=== PATIENT | female | born 1980 | race Caucasian/White ===

== ENCOUNTER 2016-10-12 09:51 | Inpatient (IN) | payer OTHER ==
[~2016-10-12] VITALS: Ht 162.6 cm; Wt 81.2 kg
[2016-10-12] MEDS ORDERED: Lactated Ringer's 1,000 ML IV PRN (10:26)
[2016-10-12] MEDS ORDERED: Oxytocin 30 Units/500 mL LR 30 UNITS in IV Premix 1 EACH IV PRN ×2 (10:30→13:55)
[2016-10-12] MEDS ORDERED: Penicillin G K Inj 5,000,000 UNITS in Dextrose 5% Minibag Plus 100 ML IV ONE (10:30)
[2016-10-12] MEDS ORDERED: Hemorrhage Kit, Post Partum XX ONE (10:30)
[2016-10-12] MEDS ORDERED: Oxytocin 10 Unit/mL Inj IM PRN (10:30)
[2016-10-12] MEDS ORDERED: Carboprost 250 mCg/mL Inj IM PRN (10:30)
[2016-10-12] MEDS ORDERED: fentaNYL-PF 50 mCg/mL 2 mL Inj IVPUSH PRN (10:30)
[2016-10-12] MEDS ORDERED: Methylergonovine 0.2 mg/mL Inj IM PRN (10:30)
[2016-10-12] MEDS ORDERED: Sodium Chloride LOK Flush 10 mL Syringe IVFLUSH PRN (10:30)
[2016-10-12 11:14] LABS: Mean Corpuscular Hemoglobin 29.7 pg (27.0-35.0); Mean Corpuscular Volume 87.2 fL (81-100)
[2016-10-12] MEDS ORDERED: LEVO50TA6 PO (11:21)
[2016-10-12] MEDS ORDERED: PNV1TABL81 PO (11:21)
--- NOTE | 2016-10-12 13:21 | HP ---
[address] [address] HISTORY AND PHYSICAL PATIENT: IBETH JOSEPH : 1980 MR#: [id number] ADMIT: 10/12/2016 JOB ID: [id number] ADMISSION DIAGNOSIS: Premature rupture of membranes at term. HISTORY OF PRESENT ILLNESS: The patient is a 36-year-old 1, para 0, at 39 weeks and 5 days gestational age by 12 week ultrasound, who presented with leakage of fluid that started at 3 a.m. this morning, confirmed rupture of membranes at triage. Denied any vaginal bleeding. Reports infrequent contractions. Reports movements. Patient complicated with the followin. IVF . 2. AMA. 3. Hypothyroid disease on 15 mcg of levothyroxine daily. 4. History of Chlamydia. GC and Chlamydia cultures were negative during this . 5. GBS cultures positive. Antibiotic prophylaxis started. 6. Rubella nonimmune. Plan is for MMR . PAST OBSTETRICAL HISTORY: Primigravida. PAST GYNECOLOGIC HISTORY: Denied any history of abnormal Pap smears. Positive history of Chlamydia. PAST MEDICAL HISTORY: Hypothyroidism. PAST SURGICAL HISTORY: IVF procedure. ALLERGIES: No known drug allergies. MEDICATIONS: 1. Levothyroxine 50 mcg daily. 2. vitamins. SOCIAL HISTORY: Denied any alcohol consumption. Denied any drugs of abuse. Denied any cigarette smoking. LABORATORIES: A-positive antibody negative, rubella non immune, varicella immune. Pap smear negative. RPR nonreactive. Hepatitis B surface antigen negative. HIV nonreactive. GC, Chlamydia cultures negative. GBS cultures positive. H and H is 13.2 and 38.8. Platelets are 269. White blood count 12.3. PHYSICAL EXAMINATION: The patient is alert, oriented x3. Vital signs are 121/82 for blood pressure. Respirations are 18, and pulse is 96 manually by myself. Temperature 37.4 degrees centigrade. Heart is regular rate and rhythm. Positive S1, S2. Lungs clear to auscultation bilaterally. Abdomen: Gravid uterus, nontender, positive bowel sounds. Lower extremities: No calf tenderness appreciated bilaterally. 2+ pitting edema up to knees bilaterally. Cervical examination by admitting triage nurse, 2 cm dilated cervix, 90% effaced, 0 station. Soft cervix, posterior position. Preciado score of 8. The patient declined my examination. heart tracing is showing a baseline of 140 beats per minute, positive accelerations, no decelerations, moderate variability, reactive tracing. ASSESSMENT AND PLAN: The patient is a 36-year-old 1, para 0, at 39 weeks and 5 days gestational age by 12 weeks ultrasound. At [facility] admitted with premature rupture of membranes. 1. Induction of labor will start with Pitocin considering patient score of 8. 2. GBS cultures positive. Penicillin prophylaxis started. 3. Category 1 heart tracing. Will continue the external monitoring. 4. Discussed intrapartum analgesia options with the patient. She opted for epidural. Anesthesia notified. All the above discussed with the patient who agreed with the plan. SY
[2016-10-12] MEDS ORDERED: Lactated Ringer's 500 ML IV ONE (13:41)
--- NOTE | 2016-10-12 13:41 | PCM.HPANE ---
Patient Data Surgeon Admitting Provider:Kevin Montana MD Attending Provider:Kevin Montana MD Primary Care Physician:Nopwilma Other Provider:Elgin Moon Anesthesia Reason for Visit Term Labor TERM LABOR Ht/WT & BMI Body Mass Index Allergies Coded Allergies: No Known Allergies (Unverified , 10/12/16) Medications Reported Medications Pnv No.122/Iron/Folic Acid ( Multi Tablet)27 Mg Iron-800 Mcg Tablet1 Each PO 10/12/16 Levothyroxine 50 Mcg Yeoxzs51 Mcg PO DAILY Ref 0 10/12/16 History Smoking Status: Former Smoker Stop/Bang Risk Assessment Category Category 1A: Patient has history of documented sleep apnea, and HAS NOT received any narcotic, sedative or anesthesia administration during this stay. Category 1B: Patient has history of documented sleep apnea, and HAS received any narcotic , sedative or anesthesia administration during this stay Category 2: Patient has SUSPECTED Obstructive Sleep Apnea, and HAS received any narcotic , sedative or anesthesia administration during this stay. Category 3: Patient has SUSPECTED Obstructive Sleep Apnea and HAS NOT received narcotic, sedative or anesthesia administration during this stay. Category 4: Outpatient in Procedural Areas with known sleep apnea or who screen positive for High Risk via the STOP/BANG questionnaire. Exam Exam General Appearance: Alert, Oriented X3, Cooperative HEENT/AIRWAY: MP 2, Neck Movement (from), Mouth Opening (wnl) Lungs: Clear to Auscultation Heart: Exam Unremarkable Meds/Labs/Diagnostics Admission Meds Current Medications Penicillin G Potassium/ Dextrose/Water (Pfizerpen Inj/ D5W Minibag Plus) 100 ml @ 240 mls/hr ONCE ONCE IV Last administered on 10/12/16t 11:14; Start at 10:30; Stop 10/12/16 at 10:54; Status DC Labs Test 10/12/16 11:09 White Blood Count 12.3th/mm3 (3.8-10.1) Red Blood Count 4.45mil/mm3 (3.90-5.20) Hemoglobin 13.2g/dL (12.0-15.6) Hematocrit 38.8% (35.0-46.0) Mean Corpuscular Volume 87.2fL (81-100) Mean Corpuscular Hemoglobin 29.7pg (27.0-35.0) Mean Corpuscular Hemoglobin Concent 34.0% (32.0-37.0) Red Cell Distribution Width 14.2% (12.3-15.4) Platelet Count 269bil/L (150-400) Plan Impression Patient chart reviewed, patient interviewed and anesthestic plan with risks, benefits, and alternatives discussed, and informed consent obtained. ASA Physical Status: ASA2 Mod Systemic Disease Anesthetic Plan: Epidural Bene/Risks/Altern/Consents: Yes HP Complete Prior to Induction: Yes David Tanner MD Oct 12, 2016 13:41
[2016-10-12] MEDS ORDERED: Ondansetron 2 mg/mL 2 mL Inj IVPUSH PRN (13:45)
[2016-10-12] MEDS ORDERED: fentaNYL 2 mCg/mL-Bupiv 0.125% 100 ML EPIDURAL SCH (13:45)
[2016-10-12] MEDS ORDERED: Atropine 1 mg/10 mL (Code) Syringe IVPUSH PRN (13:45)
[2016-10-12] MEDS ORDERED: Penicillin G K 3,000,000 Units/50 mL D5W Premix IV ONE (15:05)
[2016-10-12] MEDS: Penicillin G K Inj 3,000,000 UNITS in IV Premix 1 EACH IV SCH ×3 (15:31→23:38)
[2016-10-12] MEDS: Lactated Ringer's 1,000 ML IV SCH ×2 (15:32→23:37)
--- NOTE | 2016-10-12 18:29 | PCM.ANEP1 ---
Post Anesthesia Phase 1 PACU Phase 1 Assessment Anesthetic Administered: Epidural Level of Alertness: Awake, talking SOSA's with Equal Strength: Yes Pain: Yes Nausea or Vomiting: No Oxygen Delivery: Room Air Lungs: Normal Air Movement David Tanner MD Oct 12, 2016 18:29
[2016-10-12] MEDS: EPHEDrine Sulfate 50 mg/mL Inj IVPUSH PRN ×2 (19:38→19:47)
[2016-10-13] MEDS: Penicillin G K Inj 3,000,000 UNITS in IV Premix 1 EACH IV SCH ×4 (03:38→16:30)
[2016-10-13] MEDS: Lactated Ringer's 1,000 ML IV SCH ×8 (03:39→17:00)
[2016-10-13] MEDS ORDERED: Sodium Citrate-Citric Acid 15 mL Solution ONE (06:32)
[2016-10-13] MEDS ORDERED: Ketamine 10 mg/mL 20 mL Inj ONE (06:41)
[2016-10-13] MEDS ORDERED: Propofol 10,000 mCg/mL 20 mL Inj ONE (06:41)
[2016-10-13] MEDS ORDERED: fentaNYL-PF 50 mCg/mL 2 mL Inj ONE (06:41)
[2016-10-13] MEDS ORDERED: Oxytocin 10 Unit/mL Inj ONE (06:41)
[2016-10-13] MEDS ORDERED: Morphine PF 1 mg/mL 10 mL Inj ONE (06:41)
[2016-10-13] MEDS ORDERED: Lactated Ringer's 1,000 ML IV PRN (07:42)
[2016-10-13] MEDS ORDERED: EPHEDrine Sulfate 50 mg/mL Inj IVPUSH PRN (07:45)
[2016-10-13] MEDS ORDERED: Dexamethasone 4 mg/mL Inj IVPUSH PRN (07:45)
[2016-10-13] MEDS ORDERED: HYDROmorphone 1 mg/mL Inj IVPUSH PRN (07:45)
[2016-10-13] MEDS ORDERED: Ondansetron 2 mg/mL 2 mL Inj IVPUSH PRN (07:45)
[2016-10-13] MEDS ORDERED: fentaNYL-PF 50 mCg/mL 2 mL Inj IVPUSH PRN (07:45)
[2016-10-13] MEDS ORDERED: Morphine PF 1 mg/mL 10 mL Inj EPIDURAL ONE (07:45)
[2016-10-13] MEDS ORDERED: MetoCLOpramide 5 mg/mL 2 mL Inj IVPUSH PRN (07:45)
[2016-10-13] MEDS ORDERED: Atropine 0.4 mg/mL Inj IV PRN (07:45)
--- NOTE | 2016-10-13 08:03 | ABG ---
DateTimeAnalyzed 07:53:00 -_ pH ____7.194 - 7.201 7.300 pCO2 ___56.8__ -mmHg 40.0 50.9 pO2 ___15.6__ -mmHg 45.0 70.0 HCO3- ___21.0__ -mmol/L 20.0 24.0 ABE ___-8.0__ -mmol/L tHb ___16.8__ -g/dL O2Hb ___19.2__ -% COHb ___-0.4__ -% MetHb ____1.3__ -% sO2 ___19.4__ -% FIO2 ___21.0__ -% Drawn By [facility] - Date/Time Notified____ 08:02:00 -_ Notified By [facility] - Notified Whom ___Dr. Preciado - B 750 -mmHg tO2 ____4.5__ -Vol% Roney test N/A -
--- NOTE | 2016-10-13 08:04 | ABG ---
DateTimeAnalyzed 07:58:00 -_ pH ____7.243 - 7.201 7.300 pCO2 ___52.1__ -mmHg 40.0 50.9 pO2 ___17.6__ -mmHg 45.0 70.0 HCO3- ___21.7__ -mmol/L 20.0 24.0 ABE ___-5.9__ -mmol/L tHb ___15.8__ -g/dL O2Hb ___27.6__ -% COHb ___-0.2__ -% MetHb ____1.2__ -% sO2 ___27.9__ -% FIO2 ___21.0__ -% Drawn By [facility] - Date/Time Notified____ 08:04:00 -_ Notified By [facility] - Notified Whom ___Dr. Preciado - B 750 -mmHg tO2 ____6.1__ -Vol% Roney test N/A -
[2016-10-13] MEDS ORDERED: LANOlin HPA 7 Gm Ointment TOPICAL PRN (09:00)
[2016-10-13] MEDS ORDERED: Oxytocin 30 Units/500 mL LR 30 UNITS in IV Premix 1 EACH IV PRN (09:00)
[2016-10-13] MEDS ORDERED: Measles-Mumps-Rubella Vaccine 0.5 mL Inj SUBQ ONE (09:00)
[2016-10-13] MEDS ORDERED: Acetaminophen IV 1,000 MG in IV Premix 1 EACH IV PRN (09:00)
[2016-10-13] MEDS ORDERED: Methylergonovine 0.2 mg/mL Inj IM PRN (09:00)
[2016-10-13] MEDS ORDERED: Hemorrhage Kit, Post Partum XX ONE (09:00)
[2016-10-13] MEDS ORDERED: Sodium Chloride LOK Flush 10 mL Syringe IVFLUSH PRN (09:00)
[2016-10-13] MEDS ORDERED: Oxytocin 10 Unit/mL Inj IM PRN (09:00)
[2016-10-13] MEDS ORDERED: Carboprost 250 mCg/mL Inj IM PRN (09:00)
--- NOTE | 2016-10-13 09:02 | PCM.ANEP1 ---
Post Anesthesia Phase 1 PACU Phase 1 Assessment Anesthetic Administered: Epidural Level of Alertness: Awake, talking SOSA's with Equal Strength: Yes Pain: Yes Nausea or Vomiting: No Oxygen Delivery: Room Air Lungs: Clear to Auscultation Kalia Duong MD Oct 13, 2016 09:02
--- NOTE | 2016-10-13 09:21 | PCM.ANEP2 ---
Post Anesthesia Evaluation ASA/CMS Post Anesthesia VS in Patient's Normal Range?: Yes Resp Stable; Airway Patent?: Yes CV Function & Hydration Stable: Yes Mental Status Recovered?: Yes Pain control Satisfactory?: Yes N/V Control Satisfactory?: Yes Kalia Duong MD Oct 13, 2016 09:21
--- NOTE | 2016-10-13 14:34 | OP ---
[address] [address] OPERATIVE REPORT PATIENT: IBETH JOSEPH : 1980 MR#: [id number] ADMIT: 10/12/2016 JOB ID: [id number] DATE OF SURGERY: 10/13/2016 SURGEON: Sara Pinedo MD. WALLPAPER PRINTER: Dr. Negron. PREOPERATIVE DIAGNOSIS(ES): 1. A 36-year-old, 1, para 0, at 39 weeks and 6 days gestational age by 12-week ultrasound. In vitro fertilization . Presented with premature rupture of membranes. Induction of labor started with low-dose Pitocin that was stopped and patient progressed to fully dilated spontaneously. Patient pushed for 2 hours with arrest of descent at -1 station diagnosed with caput succedaneum formation. 2. Category 2 heart tracing that is unresponsive to intrauterine resuscitation measures. Tachycardia at 170 beats per minute. Started at 5:20 a.m. with early and late decelerations. Positive accelerations, moderate variability. One prolonged deceleration at 6:22 a.m. for 2 minutes, keiko of 90 beats per minute, back to the baseline. Discussed the above with the patient and she opted to proceed with a primary C- section and consent signed. All questions answered. POSTOPERATIVE DIAGNOSIS(ES): 1. A 36-year-old, 1, para 0, at 39 weeks and 6 days gestational age by 12-week ultrasound. In vitro fertilization . Presented with premature rupture of membranes. Induction of labor started with low-dose Pitocin that was stopped and patient progressed to fully dilated spontaneously. Patient pushed for 2 hours with arrest of descent at -1 station diagnosed with caput succedaneum formation. 2. Category 2 heart tracing that is unresponsive to intrauterine resuscitation measures. Tachycardia at 170 beats per minute. Started at 5:20 a.m. with early and late decelerations. Positive accelerations, moderate variability. One prolonged deceleration at 6:22 a.m. for 2 minutes, keiko of 90 beats per minute, back to the baseline. Discussed the above with the patient and she opted to proceed with a primary C- section and consent signed. All questions answered. PROCEDURE: Primary low transverse section. ANESTHESIA: Epidural. ESTIMATED BLOOD LOSS: 600 cc. INTRAVENOUS FLUIDS: 1 L of crystalloid. COMPLICATIONS: None. PACKS: None. DRAINS: None. CATHETERS: Mckinney catheter in place. INTRAOPERATIVE FINDINGS: 1. Normal fallopian tubes and ovaries bilaterally. 2. head in left occiput posterior position with caput succedaneum. 3. Single viable female with Apgars 5/7/9. Weight of 3998 g. 4. Loose intra-abdominal mass that is around 1 x 2 cm in diameter. Could represent some calcified fat tissue. Was sent to Pathology. PROCEDURE: Risks, benefits, alternatives of the procedure discussed with the patient. Informed consent was signed. Patient brought to the OR with IV running. After epidural anesthesia was found to be adequate, Mckinney catheter inserted and the patient was prepped and draped in the normal sterile fashion. Incision made with a scalpel 2 cm above the symphysis pubis and carried down to the underlying rectus fascia with the scalpel. Fascial incision extended bilaterally with the Schwartz scissors. Inferior aspect of fascial incision was grasped with Giuseppe clamps, elevated, tented up, rectus muscle dissected off bluntly. Attention was then turned to the superior aspect of the fascial incision, which in similar fashion was grasped with Giuseppe clamps, elevated, tented up, rectus muscle dissected off bluntly. Rectus muscles were then in the midline. Peritoneum identified, entered bluntly with traction, countertraction. Upon good visualization of the bladder, the peritoneal incision was extended superiorly and inferiorly. Bladder blade inserted and the vesicouterine peritoneum identified, entered sharply with the Metzenbaum scissors. Bladder flap created digitally. Bladder blade reinserted. Uterus incised in midline with scalpel and incision extended bilaterally with bandage scissors. was found to be in left occiput posterior position. brought up to the hysterotomy level, and the infant head delivered, followed by shoulders and the rest of the body without difficulty. Delayed cord clamping allowed for 60 seconds. Cord clamped and cut. Infant handed off to awaiting direct customer service representative. Cord blood collected for blood gases as well. Placenta followed spontaneously. Uterus exteriorized, cleared of all clots and debris. The uterine incision repaired in two layers, first a continuous locked fashion of 0-Vicryl suture, 2nd layer imbrication with 0- Vicryl suture. There was a small extension in the middle of the incision that was repaired with continuous locked fashion of 0-Vicryl suture. Good hemostasis was assured. Suction irrigation confirmed hemostasis. Both tubes and ovaries were inspected and found to have normal anatomy. Uterus returned back to the abdomen. Second suction irrigation confirmed hemostasis. Interceed was inserted over the patient's repaired hysterotomy to prevent future formation of adhesions. All instruments were removed from the patient's abdomen. Muscles approximated in the midline with interrupted sutures of 2-0 chromic. Fascia closed in a continuous fashion of 0- Vicryl suture. Skin closed in a subcuticular fashion with 4-0 Vicryl. Steri-Strips and pressure dressing applied. Patient tolerated the procedure well. Sponge, lap, and instrument counts were correct x2. Mom and baby recovering in a stable condition. Dr. Pinedo was present and scrubbed for the entire procedure. SY
[2016-10-14] MEDS ORDERED: Measles-Mumps-Rubella Vaccine 0.5 mL Inj SUBQ ONE (06:45)
[2016-10-14 07:15] LABS: Mean Corpuscular Hemoglobin 29.6 pg (27.0-35.0); Mean Corpuscular Volume 92.2 fL (81-100)
[2016-10-14] MEDS: Lactated Ringer's 1,000 ML IV SCH ×4 (07:26→17:00)
--- NOTE | 2016-10-14 07:45 | PCM.PNOBPP ---
Subjective Date of Service Oct 14, 2016 Post : Primary Ceserean Delivery Visit History Presented to the [facility] at 39 weeks and 5 days after having spontaneous rupture of membrane on 10/12/2016 a roughly 3 AM. She was progressing through labor normally, when on the morning of she began to have changes in the heart rate tracing, namely tachycardic at 170, prolonged decelerations for 2 minutes at 90 beats per minute, moderate variability. She underwent primary with Dr. Pinedo due to the category 2 tracing and concern for baby. She is GBS positive and prior to delivery received GBS prophylaxis. Additionally during , massive tissue was identified and resected and sent for pathology, the operative note describes this as "calcified tissue." labs showed her to be rubella nonimmune. Subjective This morning the patient claims she is doing well, she is breast-feeding, and states her pain could be better controlled. She states she did not know that she could ask for additional pain medication and have been waiting for the nurses to bring it to her. She was started on levothyroxine 50 g during , such did not take it prior to , and she has not received it since being admitted to the hospital. Lochia: Normal Pain Management: PO pain meds Gastrointestinal: Good Appetite, No N/V, Passing Flatus Group B Strep Results: Positive Rubella: Non-Immune Blood Type: A RH Type: Positive Labs Laboratory Tests 10/14/16 06:41: Exam Vital Signs Vital Signs 103/50 110 18 37.3 97% Vital Signs: VS reviewed, stable Exam Abdomen: Fundus firm, Abdomen soft, Abdomen appropriately tender : UOP has been (good), Mckinney catheter Extremities: No cords, Normal pulses, Edema 2+, SCDs on Lungs: Clear to Auscultation Heart: Regular Rate/Rhythm, Normal S1, Normal S2 General: Alert, Oriented X3, Cooperative, No Acute Distress Surgical Wound : Incision General Appearence: No Erythemia Dressing & Drainage Status: Dry & Intact, No Odor OB Post Assessment/Plan Assessment 36-year-old woman postop day 1 from primary delivery, recovering as anticipated. Problems: (1) Term Status: Acute ICD Code: Z34.80 (2) Spontaneous rupture of membranes Status: Acute ICD Code: [id number] (3) Status post primary low transverse section Status: Acute ICD Code: Z98.89 Pain Management: Oral analgesics. Advised patient to stay on top of pain rather than taking pain medication when pain becomes unbearable. Pain Evaluation: Adequate Pain Control VTE Mechanical Devices: Intermittant Pneumatic CD Post plan: Continue routine post care, Discharge home tomorrow Plan: Continue to encourage breast-feeding Continue to encourage ambulation Routine care. MMR vaccination to be administered. Attending Statement asymptomatic hypothyroidism at early . Started levothyroxin in . I will not start her back to medication and will check her TSH. Will decide whether need to restart. Timothy Jimenez DO Oct 14, 2016 07:45 Tmaika Baumann MD Oct 14, 2016 12:48
[2016-10-14] MEDS: Ascorbic Acid 500 mg Tablet PO SCH (08:24)
[2016-10-14] MEDS: Penicillin G K Inj 3,000,000 UNITS in IV Premix 1 EACH IV SCH ×4 (08:30→20:30)
--- NOTE | 2016-10-15 08:10 | PCM.DIMED ---
Timothy Jimenez DO 10/15/16 0810: Discharge Instructions Date of Service Oct 15, 2016 Dates of Hospitalization Oct 12, 2016 at 9:58 am Discharge Diagnosis Discharge Diagnosis Term Labor SROM Catagory 2 monitor tracing Status post primary delivery. Medication Instructions Percocet 5/325 mg, take 1 tab q4-6h PO PRN for pain, #40 Colace 100 mg BID PO PRN for constipation #100 Ferrous sulfate 325 mg PO daily, #90 Vitamin C 500 mg PO daily, #90. Take with iron Ibuprofen 800mg, take 1 tab q8h PO PRN for pain #60 Diet No restrictions Activity Other (No lifting >15 for 6 wks. Pelvic rest for 6wks. Balance activty and rest as pain allows. ) Patient Instructions Continue your vitamin. Please take the iron and vitamin c together for your anemia. Do not take more pain medication (Percocet) than is necessary -- less is better. Percocet pills have Tylenol (acetaminophen) in them at 325mg per pill. Do not take Tylenol in addition to your pain medication but should take one or the other. Both iron and Percocet can give you constipation so you have also been given a prescription for docusate to keep you regular. Be sure to follow up in 2 weeks and then again in 6 weeks at [facility]. Pelvic rest for 6 weeks (nothing per vagina including intercourse, tampons) If you have a fever greater than 100.4, please call [facility]. There is always someone projection camera operator to talk to. If you have an increase in bleeding, call [facility]. If you have a lot of bleeding suddenly, especially if you have symptoms of dizziness & weakness with it, get emergency help. When you see [facility] in two weeks, you will be informed of the results of all the labs. If you start experiencing extreme depression, especially if you feel that you are a danger to yourself or your family, seek emergency help. You have been through a lot -- BE SURE TO TAKE CARE OF YOURSELF. Follow-up plan Follow up in [facility] in 2 and 6 weeks. Tamika Baumann MD 10/22/16 1436: Discharge Instructions Attending's Statement I saw patient and agree with above plan Timothy Jimenez DO Oct 15, 2016 08:10 Tamika Baumann MD Oct 22, 2016 14:36
[2016-10-15] MEDS ORDERED: Ascorbic Acid PO (08:14)
[2016-10-15] MEDS ORDERED: OXYC1TAB24 PO (08:14)
[2016-10-15] MEDS ORDERED: DOCU-41 PO (08:14)
[2016-10-15] MEDS ORDERED: FERR-74 PO (08:14)
[2016-10-15] MEDS ORDERED: IBUP800T28 PO (08:14)
[2016-10-15] MEDS: Ascorbic Acid 500 mg Tablet PO SCH (08:34)
[2016-10-15 09:36] VITALS: BP 142/84; PULSE 76; RESP 16
--- NOTE | 2016-10-15 12:57 | PCM.DC.OB ---
Obstetrical Discharge Summary Date of Service Oct 15, 2016 Date of hospital admission Oct 12, 2016 at 09:58 Date of Discharge: Oct 15, 2016 Providers Admitting Physician: Kevin Montana MD Primary Care Physician: Louis Attending Physician: Kevin Montana MD Problems: (1) Term Status: Acute ICD Code: Z34.80 (2) Spontaneous rupture of membranes Status: Acute ICD Code: [id number] (3) Status post primary low transverse section Status: Acute ICD Code: Z98.89 Brief History and Physical: Per Dr. Pinedo's admission history: The patient is a 36-year-old 1, para 0, at 39 weeks and 5 days gestational age by 12 week ultrasound, who presented with leakage of fluid that started at 3 a.m. this morning, confirmed rupture of membranes at triage. Denied any vaginal bleeding. Reports infrequent contractions. Reports movements. Patient complicated with the followin. IVF . 2. AMA. 3. Hypothyroid disease on 15 mcg of levothyroxine daily. 4. History of Chlamydia. GC and Chlamydia cultures were negative during this . 5. GBS cultures positive. Antibiotic prophylaxis started. 6. Rubella nonimmune. Plan is for MMR . Physical exam on day of discharge Vitals: 106/72, 95 beats per minute, 18 respirations per minute, 36.8C General: Laying in bed, no apparent distress. HEENT: Normocephalic, atraumatic, EOMI grossly, Cardiovascular: Regular rate and rhythm, no clicks murmurs rubs, peripheral pulses 2/4 equal bilaterally Pulmonary: Clear to auscultation bilaterally, no W/R/R. Abdominal: Uterine fundus is palpated at level of umbilicus, there is hyperresonance to percussion to the epigastrium. Extremities: No edema appreciated. No tenderness, asymmetry. Neuro: Neurologically grossly intact, strength is equal bilaterally upper and lower extremities. MSK: Gait is normal, able to move extremities on their own volition, strength 5 out of 5 equal bilaterally to upper and lower extremities. Hospital Course: Patient had to have a primary section after having a category 2 tracing , namely tachycardia and 170, and a prolonged deceleration with a keiko at 90 per minute for nearly 2 minutes. Prior to this she received GBS prophylaxis with penicillin. Her pain was controlled with oral analgesics following section. On day 2, she stated she felt comfortable going home, was able to ambulate independently, was voiding without difficulty, and passing flatus. ([Ascorbic Acid]) 500 MG TABLET 500 MG PO DAILYWM Prescribed by: TIMOTHY QUEZADA DO Docusate Sodium (Colace) 100 Mg Capsule 100 MG PO BID Prescribed by: TIMOTHY QUEZADA DO Ferrous Sulfate (Feosol) 325 Mg Tablet 325 MG PO DAILY Prescribed by: TIMOTHY QUEZADA DO Ibuprofen (Ibuprofen) 800 Mg Tablet 800 MG PO TID PRN PRN For Pain Prescribed by: TIMOTHY QUEZADA DO Levothyroxine (Levothyroxine) 50 Mcg Tablet 50 MCG PO DAILY (Reported) Pnv No.122/Iron/Folic Acid ( Multi Tablet) 27 Mg Iron-800 Mcg Tablet 1 EACH PO (Reported) oxyCODONE-Acetaminophen 5-325 mg (oxyCODONE-Acetaminophen 5-325 mg) 1 Each Tablet 1 TAB PO Q6H PRN PRN For Pain Prescribed by: TIMOTHY QUEZADA DO Discharge Medications: As above Disposition Home, with family. Follow-up plan Follow-up in 2 and 6 weeks at [facility] Discharge Diet: No restrictions Discharge Activity-General: Pelvic Rest for 6 weeks, Pelvic Rest, Try not to overdue, Be up and about, Balance rest and activity, Ice incision 3-5 time/day for 20min, Activity as pain allows, Activity as energy allows, No lifting >15 pounds for 2 weeks Patient instructions Continue your vitamin. Please take the iron and vitamin c together for your anemia. Do not take more pain medication (Percocet) than is necessary -- less is better. Percocet pills have Tylenol (acetaminophen) in them at 325mg per pill. Do not take Tylenol in addition to your pain medication but should take one or the other. Both iron and Percocet can give you constipation so you have also been given a prescription for docusate to keep you regular. Be sure to follow up in 2 weeks and then again in 6 weeks at [facility]. Pelvic rest for 6 weeks (nothing per vagina including intercourse, tampons) If you have a fever greater than 100.4, please call [facility]. There is always someone airline reservation agent to talk to. If you have an increase in bleeding, call [facility]. If you have a lot of bleeding suddenly, especially if you have symptoms of dizziness & weakness with it, get emergency help. When you see [facility] in two weeks, you will be informed of the results of all the labs. If you start experiencing extreme depression, especially if you feel that you are a danger to yourself or your family, seek emergency help. You have been through a lot -- BE SURE TO TAKE CARE OF YOURSELF. Additional information Patient stated that this was a in vitro fertilization , as such she has little concern becoming her time before she is seen in [facility] at her 2 and 6 weeks follow-up. MMR was administered prior to discharge. Patient did not receive levothyroxine 50 g while she was in the hospital, her TSH was checked day 1, was found to be elevated and patient was instructed to begin taking levothyroxine once again. Attending Statement: I saw and examined patient. I agree with above evaluation and plan. Timothy Jimenez DO Oct 15, 2016 12:57 Tamika Baumann MD Nov 04, 2016 21:00
--- NOTE | 2016-10-16 13:42 | PATH ---
SURGICAL PATHOLOGY Attending Physician:Sara Pinedo MD CASE STATUS: Signed Out PATIENT NAME: IBETH JOSEPH PID: [id number] : 1980 DATE COLLECTED:10/13/2016 00:00 SPECIMEN: Mass, NOS CLINICAL HISTORY: 1). Loose Intra-abdominal Mass FINAL DIAGNOSIS: 1.LOOSE INTRA-ABDOMINAL MASS: NODULE OF NECROTIC FAT, CONSISTENT WITH INFARCTED EPIPLOIC APPENDAGE. NO EVIDENCE OF NEOPLASIA. ICD10 CODE R19.09 GROSS DESCRIPTION: Received in formalin, labeled with the patient' s name and "unspecified", is one smooth, circular fragment of yellow, fatty tissue measuring 1.5 x 1.5 x 0.5 cm. The fragment is inked blue, bisected, and totally submitted in cassette 1A. ([id number]) MICRO DESCRIPTION: See diagnosis. ICD-9 CODES: CPT CODES: 1: 05680 Electronically Signed Out Talisha Yee MD [facility] [address], [place] [address] Technical component performed at [facility], [address], [place], [address]
== END 2016-10-15 10:08 | disposition home or self-care (01) | DRG 766 ==
LOC: FBCO 09:51 → UNDOADMIN 09:58 → FBC 09:58
PROVIDERS: ADMIT Legal Medicine; ATTEND Obstetrics & Gynecology
PROC: 3E0P05Z Introduction of Adhesion Barrier into Female Reproductive, Open Approach (ICD-10-PCS; 2016-10-13)
PROC: 10D00Z1 Extraction of Products of Conception, Low, Open Approach (ICD-10-PCS; principal; 2016-10-13 07:09)
PROC: 3E0134Z Introduction of Serum, Toxoid and Vaccine into Subcutaneous Tissue, Percutaneous Approach (ICD-10-PCS; 2016-10-14)
DX: O32.4XX0 Maternal care for high head at term, not applicable or unspecified (principal); O99.284 Endocrine, nutritional and metabolic diseases complicating childbirth; O99.824 Streptococcus B carrier state complicating childbirth; E03.9 Hypothyroidism, unspecified; Z3A.39 39 weeks gestation of pregnancy; O09.513 Supervision of elderly primigravida, third trimester; Z37.0 Single live birth; O09.813 Supervision of pregnancy resulting from assisted reproductive technology, third trimester; O76 Abnormality in fetal heart rate and rhythm complicating labor and delivery